=== PATIENT | female | born 1985 | race Caucasian/White ===

== ENCOUNTER 2016-10-11 20:15 | Emergency (ER) | payer SELFPAY ==
[~2016-10-11] VITALS: Ht 162.6 cm; Wt 80.0 kg
[2016-10-11 20:18] VITALS: Ht 162.6 cm; Wt 80.0 kg
== END 2016-10-11 21:21 | disposition left against medical advice (07) ==
LOC: FTE 20:15
DX: Z53.21 Procedure and treatment not carried out due to patient leaving prior to being seen by health care provider (principal)